=== PATIENT | male | born 1990 | race Caucasian/White ===

== ENCOUNTER 2022-04-11 13:54 | Inpatient (IN) | payer SELFPAY ==
[2022-04-11] MEDS ORDERED: Ketorolac Tromethamine 30 MG/ML VIAL ONE (15:28)
[2022-04-11] MEDS ORDERED: Sulfameth/Trimethoprim DS 800-160mg TAB ONE (15:28)
[2022-04-11] MEDS ORDERED: Clindamycin 150 MG CAP ONE (15:28)
[2022-04-11] MEDS ORDERED: Morphine 4 MG/ML VIAL ONE (16:49)
[2022-04-11] MEDS ORDERED: Vancomycin 1 GM in Premix Bag 1 BAG IVPB SCH ×2 (18:00→21:00)
[2022-04-11] MEDS ORDERED: Acetaminophen 325 MG TAB PO PRN (18:03)
[2022-04-11] MEDS ORDERED: Ondansetron ODT 4 MG TAB PO PRN (18:03)
[2022-04-11] MEDS ORDERED: Ondansetron PF 4 MG/2 ML Vial IVP PRN (18:03)
[2022-04-11 18:24] VITALS: BMI 31.8
[2022-04-11] MEDS ORDERED: Potassium Chloride 20 MEQ in Premix Bag 1 BAG IVPB SCH (18:30)
[2022-04-11] MEDS ORDERED: VANCOMYCIN IVPB PRN (18:32)
[2022-04-11] MEDS ORDERED: Cefepime 2 GM in Sodium Chloride 0.9% 100 ML IVPB SCH (18:45)
[2022-04-11] MEDS ORDERED: Potassium Chloride 20 MEQ TAB PO SCH (18:45)
[2022-04-11] MEDS ORDERED: Vancomycin HCl 2.5 GM in Sodium Chloride 0.9% 500 ML IVPB SCH (19:00)
[2022-04-11] MEDS: HYDROcodone/Acetaminophen 5/325 mg Tablet PO PRN (19:38)
[2022-04-11] MEDS: Sodium Chloride 0.9% 1,000 ML IV SCH (19:39)
[2022-04-11] MEDS: Nicotine 14 MG PATCH TD SCH (20:23)
[2022-04-11] MEDS: Morphine 4 MG/ML VIAL SLOW IVP PRN (20:52)
[2022-04-11] MEDS: Melatonin 3 MG TAB PO PRN (20:52)
[2022-04-12] MEDS: HYDROcodone/Acetaminophen 5/325 mg Tablet PO PRN ×4 (00:09→13:08)
[2022-04-12] MEDS: Morphine 4 MG/ML VIAL SLOW IVP PRN ×5 (00:48→20:21)
[2022-04-12] MEDS ORDERED: Morphine 4 MG/ML VIAL SLOW IVP SCH (03:15)
[2022-04-12] MEDS: VANCOMYCIN 1.25 GM/250 ML BAG 1.25 GM in Premix Bag 1 BAG IVPB SCH ×3 (03:20→21:06)
[2022-04-12] MEDS: Cefepime 2 GM in Sodium Chloride 0.9% 100 ML IVPB SCH ×2 (05:01→17:15)
[2022-04-12] MEDS ORDERED: Cefepime 1 GM in Sodium Chloride 0.9% 100 ML IVPB SCH (06:00)
[2022-04-12 07:08] LABS: #Eosinphils 0.1 thou/uL (0.0-0.7); #Lymphocytes 2.1 thou/uL (1.20-3.40); #Monocytes 1.3 thou/uL (0.11-0.59); #Neutrophils 8.3 thou/uL (1.40-6.50); %Basophils 0.2 % (0.0-1.0); %Eosinophils 0.8 % (0.0-10.0); %Lymphocytes 17.7 % (21.0-51.0); %Monocytes 11.2 % (0.0-10.0); %Neutrophils 70.1 % (42.0-75.0); Hemoglobin 14.5 g/dL (14.0-18.0); Mean Corpuscular HGB CONC 33.9 g/dL (32.0-36.0); Mean Corpuscular Hemoglobin 31.7 pg (27.0-31.0); Mean Corpuscular Volume 93.6 fl (78.0-98.0); Mean Platelet Volume 6.4 fL (7.4-10.4); Platelet Count 248 10x3/uL (130-400); RBC Distribution Width 11.2 % (11.5-14.5); Red Blood Cell (RBC) Count 4.56 mill/uL (4.70-6.10); White Blood Cell (WBC) Count 11.8 10x3/uL (4.8-10.8)
[2022-04-12 07:11] LABS: Anion Gap 10 mmol/L (10-20); BUN (Urea Nitrogen) 13 mg/dL (8.9-20.6); Calc. Creatinine Clearance 211 mL/min (70-130); Calcium 8.5 mg/dL (7.8-10.44); Carbon Dioxide 27 mmol/L (22-29); Chloride 102 mmol/L (98-107); Estimated GFR 123; Glucose 91 mg/dL (70-105); Potassium 3.5 mmol/L (3.5-5.1); Sodium 135 mmol/L (136-145)
[2022-04-12] MEDS ORDERED: FLU VACC QS2022-23(6MOS UP)/PF 60 MCG/0.5 ML SYRINGE IM ONE (09:00)
[2022-04-12] MEDS: Sodium Chloride 0.9% 1,000 ML IV SCH ×2 (09:18→20:56)
[2022-04-12] MEDS ORDERED: EPINEPHrine 1 MG/ML AMP ONE (16:34)
[2022-04-12] MEDS ORDERED: Lidocaine 1% (PF) 30 ML VIAL ONE (16:34)
[2022-04-12] MEDS ORDERED: Bacitracin Zinc Ointment 30 gm TUBE ONE (16:34)
[2022-04-12] MEDS ORDERED: Chlorhexidine Gluconate 15 ML UDCUP SSP ONE (16:34)
[2022-04-12] MEDS ORDERED: Fentanyl 250 MCG/5 ML VIAL ONE (18:05)
[2022-04-12] MEDS ORDERED: Dexmedetomidine 200 MCG/2 ML VIAL ONE (18:06)
[2022-04-12] MEDS ORDERED: NEOSTIGMINE 3 MG/3 ML SYR 3 MG/3 ML SYRINGE ONE (18:28)
[2022-04-12] MEDS ORDERED: Ondansetron PF 4 MG/2 ML Vial ONE (18:28)
[2022-04-12] MEDS ORDERED: Glycopyrrolate 0.2 MG/ML 5 ML SYRINGE ONE (18:28)
[2022-04-12] MEDS ORDERED: Lidocaine 1% PF 5 ML VIAL ONE (18:28)
[2022-04-12] MEDS ORDERED: Dexamethasone 20 MG/5 ML VIAL ONE (18:28)
[2022-04-12] MEDS ORDERED: PROPOFOL 200 MG/20 ML VIAL ONE (18:28)
[2022-04-12] MEDS ORDERED: Rocuronium Bromide 10 MG/ML (10ML VIAL) ONE (18:28)
[2022-04-12] MEDS ORDERED: Neomycin-Polymyxin 1 ML AMP ONE (18:44)
[2022-04-12] MEDS ORDERED: Dexamethasone 4 mg/ml Vial ONE (18:52)
[2022-04-12] MEDS: Melatonin 3 MG TAB PO PRN (20:21)
[2022-04-12] MEDS: Nicotine 14 MG PATCH TD SCH (20:59)
[2022-04-13] MEDS: HYDROcodone/Acetaminophen 5/325 mg Tablet PO PRN ×2 (03:40→20:51)
[2022-04-13 04:43] LABS: Hemoglobin 14.2 g/dL (14.0-18.0); Mean Corpuscular HGB CONC 34.3 g/dL (32.0-36.0); Mean Corpuscular Hemoglobin 32.1 pg (27.0-31.0); Mean Corpuscular Volume 93.7 fl (78.0-98.0); Mean Platelet Volume 6.3 fL (7.4-10.4); Platelet Count 290 10x3/uL (130-400); RBC Distribution Width 11.3 % (11.5-14.5); Red Blood Cell (RBC) Count 4.43 mill/uL (4.70-6.10); White Blood Cell (WBC) Count 14.4 10x3/uL (4.8-10.8)
[2022-04-13 04:52] LABS: Vancomycin, Trough 10.7 ug/mL
[2022-04-13 04:55] LABS: Anion Gap 13 mmol/L (10-20); BUN (Urea Nitrogen) 14 mg/dL (8.9-20.6); Calc. Creatinine Clearance 206 mL/min (70-130); Calcium 8.7 mg/dL (7.8-10.44); Carbon Dioxide 22 mmol/L (22-29); Chloride 104 mmol/L (98-107); Estimated GFR 122; Glucose 160 mg/dL (70-105); Potassium 4.4 mmol/L (3.5-5.1); Sodium 135 mmol/L (136-145)
[2022-04-13 05:18] LABS: Band 13 % (5-11); Hypochromia SLIGHT = 6-15 cells (100X) (0-5/hpf); Lymphocytes 6 % (21-51); MDiff Complete? YES; Monocytes 3 % (0-10); Neutrophil 78 % (42-75); Platelet Morphology Comment Appears Adequate
[2022-04-13] MEDS: Cefepime 2 GM in Sodium Chloride 0.9% 100 ML IVPB SCH ×2 (05:24→20:43)
[2022-04-13] MEDS: VANCOMYCIN 1.25 GM/250 ML BAG 1.25 GM in Premix Bag 1 BAG IVPB SCH (05:49)
[2022-04-13] MEDS: VANCOMYCIN 1.75 GM/500 ML BAG 1.75 GM in Premix Bag 1 BAG IVPB SCH ×3 (05:59→21:26)
[2022-04-13] MEDS: Chlorhexidine Gluconate 15 ML UDCUP SSP SCH ×2 (09:09→20:45)
[2022-04-13] MEDS: Sodium Chloride 0.9% 1,000 ML IV SCH (09:09)
[2022-04-13] MEDS: Morphine 4 MG/ML VIAL SLOW IVP PRN (09:17)
[2022-04-13] MEDS: Nicotine 14 MG PATCH TD SCH (20:46)
[2022-04-14] MEDS: Sodium Chloride 0.9% 1,000 ML IV SCH ×2 (01:36→12:33)
[2022-04-14] MEDS: Cefepime 2 GM in Sodium Chloride 0.9% 100 ML IVPB SCH ×2 (05:16→19:28)
[2022-04-14] MEDS: VANCOMYCIN 1.75 GM/500 ML BAG 1.75 GM in Premix Bag 1 BAG IVPB SCH ×3 (05:16→21:43)
[2022-04-14 06:28] LABS: #Eosinphils 0.2 thou/uL (0.0-0.7); #Lymphocytes 3.4 thou/uL (1.20-3.40); #Monocytes 0.7 thou/uL (0.11-0.59); #Neutrophils 7.9 thou/uL (1.40-6.50); %Basophils 0.3 % (0.0-1.0); %Eosinophils 1.3 % (0.0-10.0); %Lymphocytes 27.9 % (21.0-51.0); %Monocytes 5.9 % (0.0-10.0); %Neutrophils 64.7 % (42.0-75.0); Hemoglobin 13.2 g/dL (14.0-18.0); Mean Corpuscular Hemoglobin 31.9 pg (27.0-31.0); Mean Corpuscular Volume 93.8 fl (78.0-98.0); Mean Platelet Volume 6.3 fL (7.4-10.4); Platelet Count 283 10x3/uL (130-400); RBC Distribution Width 11.1 % (11.5-14.5); Red Blood Cell (RBC) Count 4.14 mill/uL (4.70-6.10); White Blood Cell (WBC) Count 12.2 10x3/uL (4.8-10.8)
[2022-04-14 06:40] LABS: Anion Gap 12 mmol/L (10-20); BUN (Urea Nitrogen) 14 mg/dL (8.9-20.6); Calc. Creatinine Clearance 242 mL/min (70-130); Calcium 8.7 mg/dL (7.8-10.44); Carbon Dioxide 23 mmol/L (22-29); Chloride 107 mmol/L (98-107); Estimated GFR 128; Glucose 104 mg/dL (70-105); Potassium 3.8 mmol/L (3.5-5.1); Sodium 138 mmol/L (136-145)
[2022-04-14] MEDS: Chlorhexidine Gluconate 15 ML UDCUP SSP SCH ×2 (09:12→21:42)
[2022-04-14] MEDS: Morphine 4 MG/ML VIAL SLOW IVP PRN ×3 (10:27→21:45)
[2022-04-14] MEDS: HYDROcodone/Acetaminophen 5/325 mg Tablet PO PRN (12:56)
[2022-04-14] MEDS: Nicotine 14 MG PATCH TD SCH (21:43)
[2022-04-14] MEDS: Bacitracin 1 PK TOP SCH (21:43)
[2022-04-15] MEDS: Cefepime 2 GM in Sodium Chloride 0.9% 100 ML IVPB SCH ×2 (05:19→18:46)
[2022-04-15] MEDS: Sodium Chloride 0.9% 1,000 ML IV SCH ×2 (05:27→14:07)
[2022-04-15 05:42] LABS: #Basophils 0.1 thou/uL (0.0-0.2); #Eosinphils 0.3 thou/uL (0.0-0.7); #Lymphocytes 3.4 thou/uL (1.20-3.40); #Monocytes 0.9 thou/uL (0.11-0.59); #Neutrophils 4.8 thou/uL (1.40-6.50); %Basophils 0.5 % (0.0-1.0); %Eosinophils 3.1 % (0.0-10.0); %Lymphocytes 36.2 % (21.0-51.0); %Monocytes 9.1 % (0.0-10.0); Hemoglobin 14.4 g/dL (14.0-18.0); Mean Corpuscular Hemoglobin 32.6 pg (27.0-31.0); Mean Corpuscular Volume 93.2 fl (78.0-98.0); Mean Platelet Volume 6.2 fL (7.4-10.4); Platelet Count 319 10x3/uL (130-400); RBC Distribution Width 11.2 % (11.5-14.5); Red Blood Cell (RBC) Count 4.42 mill/uL (4.70-6.10); White Blood Cell (WBC) Count 9.5 10x3/uL (4.8-10.8)
[2022-04-15 06:35] LABS: Vancomycin, Trough 24.3 ug/mL
[2022-04-15 06:37] LABS: Anion Gap 12 mmol/L (10-20); BUN (Urea Nitrogen) 12 mg/dL (8.9-20.6); Calc. Creatinine Clearance 235 mL/min (70-130); Calcium 8.7 mg/dL (7.8-10.44); Carbon Dioxide 25 mmol/L (22-29); Chloride 103 mmol/L (98-107); Estimated GFR 127; Glucose 105 mg/dL (70-105); Potassium 3.6 mmol/L (3.5-5.1)
[2022-04-15 06:40] LABS: Sodium 136 mmol/L (136-145)
[2022-04-15] MEDS: VANCOMYCIN 1.75 GM/500 ML BAG 1.75 GM in Premix Bag 1 BAG IVPB SCH (06:51)
[2022-04-15] MEDS: Chlorhexidine Gluconate 15 ML UDCUP SSP SCH ×2 (09:36→20:40)
[2022-04-15] MEDS: VANCOMYCIN 1.25 GM/250 ML BAG 1.25 GM in Premix Bag 1 BAG IVPB SCH ×2 (09:36→17:09)
[2022-04-15] MEDS: Bacitracin 1 PK TOP SCH ×3 (13:05→20:36)
[2022-04-15] MEDS: Morphine 4 MG/ML VIAL SLOW IVP PRN (17:08)
[2022-04-15] MEDS ORDERED: Cefepime 2 GM VIAL ONE (18:42)
[2022-04-15] MEDS: Nicotine 14 MG PATCH TD SCH (20:34)
[2022-04-15] MEDS: HYDROcodone/Acetaminophen 5/325 mg Tablet PO PRN (20:40)
[2022-04-16] MEDS: VANCOMYCIN 1.25 GM/250 ML BAG 1.25 GM in Premix Bag 1 BAG IVPB SCH ×3 (00:12→16:16)
[2022-04-16] MEDS: Cefepime 2 GM in Sodium Chloride 0.9% 100 ML IVPB SCH ×2 (05:14→18:13)
[2022-04-16] MEDS: Sodium Chloride 0.9% 1,000 ML IV SCH ×2 (05:16→21:15)
[2022-04-16 08:23] LABS: #Basophils 0.1 thou/uL (0.0-0.2); #Eosinphils 0.3 thou/uL (0.0-0.7); #Lymphocytes 2.6 thou/uL (1.20-3.40); #Monocytes 0.8 thou/uL (0.11-0.59); #Neutrophils 4.9 thou/uL (1.40-6.50); %Eosinophils 3.3 % (0.0-10.0); %Lymphocytes 29.8 % (21.0-51.0); %Monocytes 9.2 % (0.0-10.0); %Neutrophils 56.8 % (42.0-75.0); Hemoglobin 14.8 g/dL (14.0-18.0); Mean Corpuscular HGB CONC 35.3 g/dL (32.0-36.0); Mean Corpuscular Hemoglobin 32.4 pg (27.0-31.0); Mean Corpuscular Volume 91.8 fl (78.0-98.0); Mean Platelet Volume 5.8 fL (7.4-10.4); Platelet Count 295 10x3/uL (130-400); RBC Distribution Width 11.1 % (11.5-14.5); Red Blood Cell (RBC) Count 4.57 mill/uL (4.70-6.10); White Blood Cell (WBC) Count 8.5 10x3/uL (4.8-10.8)
[2022-04-16 08:47] LABS: Vancomycin, Trough 16.7 ug/mL
[2022-04-16 08:49] LABS: Anion Gap 10 mmol/L (10-20); BUN (Urea Nitrogen) 10 mg/dL (8.9-20.6); Calc. Creatinine Clearance 223 mL/min (70-130); Calcium 8.6 mg/dL (7.8-10.44); Carbon Dioxide 25 mmol/L (22-29); Chloride 105 mmol/L (98-107); Estimated GFR 125; Glucose 90 mg/dL (70-105); Potassium 3.9 mmol/L (3.5-5.1); Sodium 136 mmol/L (136-145)
[2022-04-16] MEDS: HYDROcodone/Acetaminophen 5/325 mg Tablet PO PRN (12:21)
[2022-04-16] MEDS: Bacitracin 1 PK TOP SCH ×3 (12:23→21:15)
[2022-04-16] MEDS: Chlorhexidine Gluconate 15 ML UDCUP SSP SCH ×2 (12:24→21:15)
[2022-04-16] MEDS: Nicotine 14 MG PATCH TD SCH (21:12)
[2022-04-17] MEDS: VANCOMYCIN 1.25 GM/250 ML BAG 1.25 GM in Premix Bag 1 BAG IVPB SCH ×2 (00:19→08:40)
[2022-04-17] MEDS: Cefepime 2 GM in Sodium Chloride 0.9% 100 ML IVPB SCH (06:07)
[2022-04-17 06:53] LABS: #Basophils 0.1 thou/uL (0.0-0.2); #Eosinphils 0.3 thou/uL (0.0-0.7); #Lymphocytes 2.5 thou/uL (1.20-3.40); #Monocytes 0.9 thou/uL (0.11-0.59); #Neutrophils 5.3 thou/uL (1.40-6.50); %Basophils 0.7 % (0.0-1.0); %Eosinophils 3.7 % (0.0-10.0); %Lymphocytes 27.6 % (21.0-51.0); %Monocytes 9.8 % (0.0-10.0); %Neutrophils 58.3 % (42.0-75.0); Hemoglobin 14.8 g/dL (14.0-18.0); Mean Corpuscular HGB CONC 35.1 g/dL (32.0-36.0); Mean Corpuscular Hemoglobin 32.2 pg (27.0-31.0); Mean Corpuscular Volume 91.6 fl (78.0-98.0); Mean Platelet Volume 5.9 fL (7.4-10.4); Platelet Count 317 10x3/uL (130-400); White Blood Cell (WBC) Count 9.2 10x3/uL (4.8-10.8)
[2022-04-17 07:13] LABS: Anion Gap 12 mmol/L (10-20); BUN (Urea Nitrogen) 12 mg/dL (8.9-20.6); Calc. Creatinine Clearance 223 mL/min (70-130); Calcium 8.8 mg/dL (7.8-10.44); Carbon Dioxide 23 mmol/L (22-29); Chloride 106 mmol/L (98-107); Estimated GFR 125; Glucose 102 mg/dL (70-105); Sodium 137 mmol/L (136-145)
[2022-04-17 07:58] LABS: Vancomycin, Trough 18.8 ug/mL
[2022-04-17 08:06] VITALS: BP 106/70; TEMP 98.2
[2022-04-17] MEDS: Chlorhexidine Gluconate 15 ML UDCUP SSP SCH (08:40)
[2022-04-17] MEDS: Bacitracin 1 PK TOP SCH (08:40)
== END 2022-04-17 09:24 | disposition home or self-care (01) | DRG 137 ==
LOC: ERS 13:54 → ERHOLD 16:46 → T4-B 18:14
PROVIDERS: ADMIT Hospitalist; ATTEND Internal Medicine
PROC: 0C900ZZ Drainage of Upper Lip, Open Approach (ICD-10-PCS; principal; 2022-04-12)
PROC: 0C940ZZ Drainage of Buccal Mucosa, Open Approach (ICD-10-PCS; 2022-04-12)
DX: K12.2 Cellulitis and abscess of mouth (principal); L03.211 Cellulitis of face; Z20.822 Contact with and (suspected) exposure to COVID-19; F17.210 Nicotine dependence, cigarettes, uncomplicated; E87.6 Hypokalemia; F12.10 Cannabis abuse, uncomplicated; E66.9 Obesity, unspecified; Z28.21 Immunization not carried out because of patient refusal; Z68.34 Body mass index [BMI] 34.0-34.9, adult; Z71.6 Tobacco abuse counseling; Z71.51 Drug abuse counseling and surveillance of drug abuser
CPT/HCPCS: 36415; 36416; 80048; 80202; 85025; 87070; 87077; 87186; 87205; J0171; J0692; J1100; J1885; J2001; J2270; J2405; J2704; J3010; J3370; J3490; J7030; J7050; U0003; U0005